=== PATIENT | male | born 1990 | race Caucasian/White ===

== ENCOUNTER 2018-06-05 12:29 | Emergency (ER) | payer BC, OTHER ==
[~2018-06-05] VITALS: Ht 195.6 cm; Wt 95.3 kg
[2018-06-05 13:41] LABS: URINE BLOOD NEGATIVE (Negative); URINE CLARITY CLOUDY; URINE COLOR YELLOW; URINE GLUCOSE-RANDOM* NEGATIVE (Negative); URINE KETONES TRACE (Negative); URINE LEUKOCYTES NEGATIVE (Negative); URINE NITRITE NEGATIVE (Negative); URINE PROTEIN (DIPSTICK) 1+ (Negative); URINE SPECIFIC GRAVITY >= 1.030 (1.005-1.035); URINE UROBILINOGEN 0.2 E.U./dl (0.2-1.0)
[2018-06-05 13:47] LABS: ICTOTEST (BILI CONFIRMATORY) Negative (Negative); URINE BILIRUBIN NEGATIVE (Negative)
[2018-06-05 13:49] LABS: CALCIUM OXALATE 0-3 Few /LPF (None Seen)
[2018-06-05 13:50] LABS: AMORPHOUS URATES Moderate /LPF (None Seen); BACTERIA 1-9 Few /HPF (None Seen); CASTS None Seen /LPF (None Seen); SQUAMOUS None Seen /LPF (0-3); URINE RBC None Seen /HPF (0-2); URINE WBC 0-5 Rare /HPF (0-5)
[2018-06-05] MEDS ORDERED: LEXAPRO 10 MG T10 M2 PO (14:01)
[2018-06-05] MEDS ORDERED: VALTREX 500 MG500 M1 PO (14:01)
[2018-06-05] MEDS ORDERED: AMBIEN5 MG PO (14:02)
[2018-06-05] MEDS ORDERED: TRUVADA1 EAC1 PO (14:02)
[2018-06-05 14:18] LABS: ABSOLUTE NEUTROPHILS 6.6 thou/uL (1.4-8.2); BASOPHILS 0.5 % (0.0-2.0); EOSINOPHILS 1.3 % (0.0-3.0); HEMATOCRIT 44.6 % (42.0-52.0); HEMOGLOBIN 14.9 gm/dL (14.0-18.0); LYMPHOCYTES 21.6 % (24.0-44.0); MCH 28.6 pg (26.0-34.0); MCHC 33.4 g/dL (28.0-37.0); MCV 85.4 fL (80.0-100.0); MONOCYTES 8.4 % (1.0-8.0); PLATELET COUNT 224 thou/uL (150-400); POLYS 68.2 % (36.0-66.0); RBC 5.22 mil/uL (4.50-6.00); RDW 13.2 % (10.5-14.5); WBC 9.7 thou/uL (4.0-11.0)
[2018-06-05 14:25] LABS: CALCIUM 9.6 mg/dL (8.5-10.1); CREATININE 1.1 mg/dL (0.7-1.3); POTASSIUM 3.8 mmol/L (3.5-5.1)
[2018-06-05 14:30] LABS: ALBUMIN 4.5 g/dL (3.4-5.0); DIRECT BILIRUBIN 0.2 mg/dL (<0.1-0.3); TOTAL BILIRUBIN 0.6 mg/dL (<0.1-1.0)
[2018-06-05] MEDS ORDERED: MIRALAX17 GM PO (15:02)
[2018-06-05] MEDS ORDERED: KEFLEX500 M1 PO (15:04)
[2018-06-05 15:27] VITALS: BP 132/64
== END 2018-06-05 15:28 | disposition home or self-care (01) ==
LOC: ER 12:29
PROVIDERS: Student in an Organized Health Care Education/Training Program
DX: N39.0 Urinary tract infection, site not specified (principal); F32.9 Major depressive disorder, single episode, unspecified